=== PATIENT | male | born 1990 | race Caucasian/White ===

== ENCOUNTER 2016-09-27 13:34 | Emergency (ER) | payer OTHER ==
[~2016-09-27] VITALS: Ht 170.2 cm; Wt 90.7 kg
[~2016-09-27 13:34] MED LIST: AMBI10TA OR; CELE10TA OR; TRAZ50TA OR; WELL100T OR
--- NOTE | 2016-09-27 14:16 | REP ---
Clinical: Trauma . Technique: Internal rotation, external rotation, and Y view left shoulder. Findings: No acute fracture or dislocation. The acromioclavicular and glenohumeral joints are intact. No periarticular calcifications or degenerative changes are appreciated. Sub acromial space is normal. Surrounding soft tissues are unremarkable. Impression: Normal left shoulder radiographs. Signed by Robbie Pack MD 09/27/2016 02:08 P
--- NOTE | 2016-09-27 14:47 | REP ---
Clinical: Trauma . Comparison: None . Findings: The ventricles, sulci, and cisterns are normal in position and appearance. Storey-white differentiation is maintained. No acute intracranial hemorrhage, mass/mass effect, pathology or trauma/injury. No evidence for acute infarction. No extra-axial fluid collection. Calvarium is intact. Paranasal sinuses and mastoid air cells are clear. Impression: Normal noncontrast head CT. No evidence for acute intracranial pathology or trauma/injury. Signed by Robbie Pack MD 09/27/2016 02:39 P
--- NOTE | 2016-09-27 14:51 | REP ---
CT cervical spine without contrast HISTORY: Trauma COMPARISON: None There is no acute fracture or subluxation. There is no disc bulge or herniation. The spinal canal and neural foramina are patent. The intervertebral discs and vertebral bodies are normal in height. IMPRESSION: There is no acute fracture or subluxation. Signed by Ricco Sharif MD 09/27/2016 02:42 P
[2016-09-27] MEDS ORDERED: NORCO, ANEXSIA 5/325MG TABLET (HYDROcodone/ACETAMINOPHEN) PO ONE (15:00)
[2016-09-27] MEDS ORDERED: ZANA4TAB PO (15:09)
[2016-09-27] MEDS ORDERED: MOBI7.5T10 PO (15:09)
[2016-09-27] MEDS ORDERED: PRED20TA PO (15:10)
[2016-09-27 15:14] VITALS: BP 140/80
== END 2016-09-27 15:22 | disposition home or self-care (01) ==
LOC: M ED 14:27
DX: M54.2 Cervicalgia (principal); R42 Dizziness and giddiness; G89.29 Other chronic pain; F31.9 Bipolar disorder, unspecified; Z87.891 Personal history of nicotine dependence; Z79.899 Other long term (current) drug therapy

== ENCOUNTER 2018-01-30 11:51 | Emergency (ER) | payer OTHER | END 2018-01-30 13:03 | disposition home or self-care (01) | LOC: M ED 11:51 | DX: S39.002A Unspecified injury of muscle, fascia and tendon of lower back, initial encounter (principal); X58.XXXA Exposure to other specified factors, initial encounter; Y92.89 Other specified places as the place of occurrence of the external cause; F17.210 Nicotine dependence, cigarettes, uncomplicated | CPT/HCPCS: 99282 ==

== ENCOUNTER → 2018-02-18 | Outpatient (CLI) | payer OTHER | LOC: M OUTALCOH 08:04 | DX: F10.20 Alcohol dependence, uncomplicated (principal) ==

== ENCOUNTER 2018-03-12 16:00 | Outpatient (RCR) | payer OTHER | END 2018-04-07 | LOC: M OUTALCOH 03-19 16:00 | DX: F10.20 Alcohol dependence, uncomplicated (principal) ==

== ENCOUNTER 2018-03-22 10:16 | Emergency (ER) | payer OTHER | END 2018-03-22 12:00 | disposition home or self-care (01) | LOC: M ED 10:16 | DX: S60.121A Contusion of right index finger with damage to nail, initial encounter (principal); W23.1XXA Caught, crushed, jammed, or pinched between stationary objects, initial encounter; Y92.89 Other specified places as the place of occurrence of the external cause; F17.210 Nicotine dependence, cigarettes, uncomplicated | CPT/HCPCS: 73140 ==

== ENCOUNTER 2018-04-09 16:00 | Outpatient (RCR) | payer OTHER | END 2018-05-08 | LOC: M OUTALCOH 04-16 16:00 | DX: F10.20 Alcohol dependence, uncomplicated (principal) ==

== ENCOUNTER 2018-05-10 15:22 | Outpatient (RCR) | payer OTHER | END 2018-06-07 | LOC: M OUTALCOH 15:22 | DX: F10.20 Alcohol dependence, uncomplicated (principal) ==

== ENCOUNTER → 2018-06-16 | Outpatient (REF) | payer OTHER | LOC: M SFHCLERA 11:58 | DX: J02.9 Acute pharyngitis, unspecified (principal) ==

== ENCOUNTER → 2018-07-08 | Outpatient (RCR) | payer OTHER ==
[~2018-07-08] MED LIST changes: +CYCL10TA PO; +IBUP-1022 PO; +MOBI4TAB PO; +PRED20TA PO; +ZANA4TAB PO
== END ==
LOC: M OUTALCOH 06-10 09:57
PROVIDERS: ATTEND Psychiatry & Neurology Psychiatry
DX: F10.20 Alcohol dependence, uncomplicated (principal)

== ENCOUNTER 2018-08-02 08:00 | Outpatient (RCR) | payer OTHER | END 2018-08-08 | LOC: M OUTALCOH 08:00 | PROVIDERS: ATTEND Psychiatry & Neurology Psychiatry | DX: F10.20 Alcohol dependence, uncomplicated (principal) ==

== ENCOUNTER 2018-08-16 08:24 | Outpatient (RCR) | payer OTHER | END 2018-09-05 | LOC: M OUTALCOH 08:24 | PROVIDERS: ATTEND Psychiatry & Neurology Psychiatry | DX: F10.20 Alcohol dependence, uncomplicated (principal) ==

== ENCOUNTER → 2020-04-19 | Outpatient (CLI) | payer BC, OTHER ==
[~2020-04-19] MED LIST changes: +CYCL-707 PO; -CYCL10TA PO
== END ==
LOC: M LABSMTC 10:38
PROVIDERS: ATTEND Family Medicine
DX: Z20.828 Contact with and (suspected) exposure to other viral communicable diseases (principal)
CPT/HCPCS: C9803; U0003

== ENCOUNTER → 2020-05-22 | Outpatient (REF) | payer OTHER | LOC: M WUC 17:10 | PROVIDERS: ATTEND Physician Assistant | DX: J02.9 Acute pharyngitis, unspecified (principal) ==

== ENCOUNTER 2020-06-16 14:09 | Emergency (ER) | payer OTHER ==
[~2020-06-16] VITALS: Ht 175.3 cm; Wt 104.9 kg
[2020-06-16] MEDS ORDERED: ATEN25TA PO (14:20)
[2020-06-16] MEDS ORDERED: LACT10SO3 (14:20)
--- NOTE | 2020-06-16 15:24 | REP ---
INDICATION: head injury/neck pain. COMPARISON: September 27, 2016.. TECHNIQUE: Helical scanning is acquired. 5 mm axial images were reformatted. Coronal MPR images were generated. FINDINGS: Bone window settings demonstrate an intact bony calvarium. There is no evidence of skull fracture or incidental bony calvarial lesion. The visualized paranasal sinuses appear clear. No intraorbital abnormality is seen. On soft tissue window setting images; the lateral, third, and fourth ventricles are normal in size and position. Storey-white differentiation pattern is normal above and below the tentorium. There are is no evidence of intracranial hemorrhage. No mass, edema, infarction, or midline shift is seen. No extra-axial fluid collection is appreciated. IMPRESSION: Negative noncontrast head CT. <Electronically signed by Gray Zepeda > 06/16/20 [id number]
--- NOTE | 2020-06-16 15:25 | REP ---
INDICATION: head injury/neck pain. COMPARISON: None. TECHNIQUE: Helical scanning is acquired and overlapping 2 mm high resolution axial images were generated and reviewed at bone and soft tissue window settings. Coronal and sagittal multiplanar re-formations images are generated. FINDINGS: There is no evidence of cervical spine element fracture. No skull base fracture is seen. Cervical vertebral body heights are preserved. Alignment is normal. Facet joints are normally aligned bilaterally at each cervical level on multiplanar re-formations images. There is no evidence of intraspinal or paraspinal hematoma. No extra vertebral abnormality is seen. Patient's head is rotated somewhat to the left. IMPRESSION: Negative CT study of the cervical spine without contrast. No fracture seen. <Electronically signed by Gray Zepeda > 06/16/20 [id number]
[2020-06-16 16:16] VITALS: BP 131/69
== END 2020-06-16 16:17 | disposition home or self-care (01) ==
LOC: M ED 14:09
DX: S00.93XA Contusion of unspecified part of head, initial encounter (principal); S10.93XA Contusion of unspecified part of neck, initial encounter; W00.0XXA Fall on same level due to ice and snow, initial encounter; Y92.9 Unspecified place or not applicable; Y93.9 Activity, unspecified; Y99.0 Civilian activity done for income or pay; F31.9 Bipolar disorder, unspecified